=== PATIENT | female | born 1945 | race Caucasian/White ===

== ENCOUNTER 2020-01-21 06:44 | Outpatient (CLI) | payer MEDICARE, OTHER ==
[2020-01-21 16:30] LABS: Anion Gap 13 mmol/L (10-20); BUN (Urea Nitrogen) 16 mg/dL (9.8-20.1); Calc. Creatinine Clearance 0 mL/min (70-130); Calcium 9.1 mg/dL (7.8-10.44); Carbon Dioxide 27 mmol/L (23-31); Chloride 103 mmol/L (98-107); Estimated GFR-MDRD 74; Glucose 74 mg/dL (83-110); Potassium 4.1 mmol/L (3.5-5.1); Sodium 139 mmol/L (136-145)
[2020-01-21 16:31] LABS: Hemoglobin 14.9 g/dL (12.0-16.0)
[2020-01-22 13:47] LABS: SARS-CoV-2 MS2 Positive; SARS-CoV-2 N Gene Negative; SARS-CoV-2 S Gene Negative; SARS-CoV-2 orf1ab Negative
== END 2020-01-21 06:45 | disposition home or self-care (01) ==
LOC: LABBT 06:44
PROVIDERS: ATTEND Otolaryngology Plastic Surgery within the Head & Neck
DX: Z01.818 Encounter for other preprocedural examination (principal); Z11.59 Encounter for screening for other viral diseases; J32.0 Chronic maxillary sinusitis; J32.1 Chronic frontal sinusitis; J32.2 Chronic ethmoidal sinusitis; J34.3 Hypertrophy of nasal turbinates; J34.89 Other specified disorders of nose and nasal sinuses; H93.19 Tinnitus, unspecified ear; H91.8X9 Other specified hearing loss, unspecified ear
CPT/HCPCS: 80048; 85014; 85018; U0003; 87635; 93005; 93010

== ENCOUNTER 2020-01-23 07:20 | Day surgery (SDC) | payer MEDICARE ==
[2020-01-18 10:14] VITALS: BMI 34.9
[2020-01-23] MEDS ORDERED: Fentanyl 250 MCG/5 ML VIAL ONE (07:30)
[2020-01-23] MEDS ORDERED: Acetaminophen 500 MG TAB ONE (08:22)
[2020-01-23] MEDS ORDERED: Lidocaine 1% w/Epinephrine 1:100K 20 ML VIAL ONE (08:56)
[2020-01-23] MEDS ORDERED: AFRIN NASAL MIST 15 ML BOT ONE ×2 (08:56→09:56)
[2020-01-23] MEDS ORDERED: SUGAMMADEX SODIUM 500 MG/5 ML VIAL ONE (10:29)
[2020-01-23] MEDS ORDERED: Morphine 4 MG/ML VIAL ONE (10:47)
[2020-01-23] MEDS ORDERED: Morphine 2 MG/ML SYRINGE ONE (10:57)
[2020-01-23] MEDS ORDERED: Ondansetron PF 4 MG/2 ML Vial ONE (11:26)
[2020-01-23] MEDS ORDERED: PROPOFOL 200 MG/20 ML VIAL ONE (11:26)
[2020-01-23] MEDS ORDERED: Dexamethasone 20 MG/5 ML VIAL ONE (11:26)
[2020-01-23] MEDS ORDERED: Lidocaine 1% PF 5 ML VIAL ONE (11:26)
[2020-01-23] MEDS ORDERED: Rocuronium Bromide 10 MG/ML (10ML VIAL) ONE (11:26)
--- NOTE | 2020-01-23 13:21 | OP ---
DATE OF PROCEDURE: 01/23/2020 PREOPERATIVE DIAGNOSES: 1. Chronic sinusitis. 2. Bilateral nasal polyposis. 3. Allergic fungal sinusitis. POSTOPERATIVE DIAGNOSES: 1. Chronic sinusitis. 2. Bilateral nasal polyposis. 3. Allergic fungal sinusitis. PROCEDURES PERFORMED: 1. Bilateral endoscopic sinus surgery, total ethmoidectomy with sphenoidotomies including removal of tissue. 2. Bilateral endoscopic sinus surgery, frontal sinus exploration with removal of tissue. 3. [employer] stereotactic image-guided sinus surgery. ESTIMATED BLOOD LOSS: 20 mL. COMPLICATIONS: None. ANESTHESIA: GETA. DESCRIPTION OF PROCEDURE: The patient was taken to the operating room and placed supine on the table. General endotracheal anesthesia was obtained by the Anesthesia Staff. Tube was secured in the left lower lip. The patient was placed in the beach-chair position. Afrin pledgets were placed in the nasal cavity. Following this, the patient was prepped and draped for standard nasal procedures and the [email or web address] image-guided system was setup and calibrated and was noted to be within 1 mm of accuracy. Following this, a 0-degree endoscope was advanced to the nasal cavity. 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 The large obstructing mucocele and polyps were noted obstructing the entire ethmoidal sinuses that was causing expansion of the bone on the left side. The navigational system and the 0-degree microdebrider were used to puncture the residual ethmoidal cells and opened them using the microdebrider and straight Blakesley forceps. Large mucocele with allergic fungal debris was opened from the ethmoidal sinuses bilaterally. Following this, the sphenoid sinus ostia was still encased in bone and the sphenoid sinus ostia puncture was made using the 0-degree microdebrider bilaterally. Polyps and fungal debris were removed from the sphenoid sinuses bilaterally by widening the sphenoidotomies in a medial and inferior direction. Following this, 45-degree endoscope was used to visualize the frontal sinus recess, which was then further widened using the curved microdebrider under navigational guidance. The frontal sinus was obliterated bilaterally with nasal polyps. These polyps were removed with the 40-degree microdebrider and the frontal sinus ostia was widened bilaterally with the 40-degree microdebrider. Following this, nasal cavity was irrigated. NasoPore packing was placed into the ethmoidal, sphenoidal, and frontal sinus area. The patient tolerated the procedure well. Job ID: [id number]
== END 2020-01-23 13:30 | disposition home or self-care (01) ==
LOC: SDC 07:20
PROVIDERS: ATTEND Otolaryngology Plastic Surgery within the Head & Neck
PROC: 8E09XBZ Computer Assisted Procedure of Head and Neck Region (ICD-10-PCS; principal; 2020-01-23)
PROC: 09BT8ZZ Excision of Left Frontal Sinus, Via Natural or Artificial Opening Endoscopic (ICD-10-PCS; 2020-01-23)
PROC: 09BW8ZZ Excision of Right Sphenoid Sinus, Via Natural or Artificial Opening Endoscopic (ICD-10-PCS; 2020-01-23)
PROC: 09BX8ZZ Excision of Left Sphenoid Sinus, Via Natural or Artificial Opening Endoscopic (ICD-10-PCS; 2020-01-23)
PROC: 09BS8ZZ Excision of Right Frontal Sinus, Via Natural or Artificial Opening Endoscopic (ICD-10-PCS; 2020-01-23)
PROC: 09TV8ZZ Resection of Left Ethmoid Sinus, Via Natural or Artificial Opening Endoscopic (ICD-10-PCS; 2020-01-23)
PROC: 09TU8ZZ Resection of Right Ethmoid Sinus, Via Natural or Artificial Opening Endoscopic (ICD-10-PCS; 2020-01-23)
DX: J32.8 Other chronic sinusitis (principal); J33.9 Nasal polyp, unspecified; J34.3 Hypertrophy of nasal turbinates; J34.89 Other specified disorders of nose and nasal sinuses; J45.909 Unspecified asthma, uncomplicated; H91.8X9 Other specified hearing loss, unspecified ear; H93.19 Tinnitus, unspecified ear; E11.9 Type 2 diabetes mellitus without complications; I10 Essential (primary) hypertension; E78.5 Hyperlipidemia, unspecified; M19.90 Unspecified osteoarthritis, unspecified site; Z79.84 Long term (current) use of oral hypoglycemic drugs; Z79.899 Other long term (current) drug therapy; Z88.0 Allergy status to penicillin; Z88.1 Allergy status to other antibiotic agents; Z88.2 Allergy status to sulfonamides
CPT/HCPCS: 87070; 87077; 87186; 87205; J1100; J2001; J2270; J2405; J2704; J3010